=== PATIENT | female | born 1930 | race Caucasian/White ===

== ENCOUNTER 2017-05-06 05:21 | Inpatient (IN) | END 2017-05-08 13:22 | disposition home or self-care (01) | DRG 517 | DX: M48.061 Spinal stenosis, lumbar region without neurogenic claudication (principal); M54.18 Radiculopathy, sacral and sacrococcygeal region; M43.16 Spondylolisthesis, lumbar region; E79.0 Hyperuricemia without signs of inflammatory arthritis and tophaceous disease ==